=== PATIENT | female | born 1995 | race Caucasian/White ===

== ENCOUNTER 2016-12-01 16:59 | Emergency (ER) | payer BC ==
[2016-12-01 18:11] VITALS: BP 121/81
--- NOTE | 2016-12-01 19:55 | UC ---
Head Injury HPI - HPI Summary HPI Summary: WAS PLAYING [employer] TODAY AT NOON AND SUSTAINED A HIT TO HER RIGHT EYE/FOREHEAD AREA. NO LOC. AFTER THE GAME NOTICED A RICHARDS AND NECK SORENESS. HAD SOME NAUSEA AND VOMITED ONE TIME. NAUSEA HAS NOW RESOLVED. DENIES DIZZINESS OR VISUAL DISTURBANCE. HAS MILD PHOTOPHOBIA. - History Of Current Complaint Chief Complaint: UCHeadInjury Stated Complaint: POSSIBLE CONCUSSION Time Seen by Provider: 12/01/16 19:30 Hx Obtained From: Patient Hx Last Menstrual Period: 11/18/16 Onset/Duration: Sudden Onset, Lasting Hours Severity Currently: Moderate Severity Initially: Moderate Pain Intensity: 4 Pain Scale Used: 0-10 Numeric Character: Dull Aggravating Factor(s): Nothing Alleviating Factor(s): Nothing Associated Signs And Symptoms: Positive: Neck Pain, Nausea, Vomiting. Negative : LOC (Time In Secs./Mins/Hrs), LOC Duration Unknown, Confusion, Memory Loss, Seizure, Epistaxis, Dental Malocclusion - Allergies/Home Medications Allergies/Adverse Reactions: Allergies Allergy/AdvReac Type Severity Reaction Status Date / Time No Known Allergies Allergy Verified 07/06/15 16:58 PMH/Surg Hx/FS Hx/Imm Hx Respiratory History: Asthma - Surgical History Surgical History: Yes Surgery Procedure, Year, and Place: [place] tooth extraction - Family History Known Family History: Positive: None - reviewed & noncontributory Negative: Hypertension, Diabetes - Social History Alcohol Use: None Substance Use Type: None Smoking Status (MU): Never Smoked Tobacco - Immunization History Most Recent Influenza Vaccination: 2014 Most Recent Tetanus Shot: up to date Most Recent Pneumonia Vaccination: unknown Review of Systems Constitutional: Negative Eyes: Photophobia ENT: Negative Respiratory: Negative Cardiovascular: Negative Gastrointestinal: Vomiting, Nausea Neurological: Headache All Other Systems Reviewed And Are Negative: Yes Physical Exam Triage Information Reviewed: Yes Appearance: Well-Appearing, No Pain Distress, Well-Nourished Vital Signs: Initial Vital Signs Temp 98.2 F 12/01/16 18:04 Pulse 99 12/01/16 18:04 Resp 18 12/01/16 18:04 BP 121/81 12/01/16 18:04 Pulse Ox 99 12/01/16 18:04 Vital Signs Reviewed: Yes Eyes: Positive: Conjunctiva Clear ENT: Positive: Hearing grossly normal Neck: Positive: Supple, No Lymphadenopathy, Tenderness @ - MUSCLES Respiratory: Positive: No respiratory distress, No accessory muscle use Cardiovascular: Positive: Pulses Normal Abdomen Description: Positive: Soft Musculoskeletal: Positive: ROM Intact, No Edema Neurological: Positive: Alert Psychological: Positive: Age Appropriate Behavior Skin: Negative: rashes Head Injury Course/Dx - Differential Dx/Diagnosis Provider Diagnoses: CONCUSSION Discharge - Discharge Plan Condition: Stable Disposition: HOME Prescriptions: Ondansetron ODT TAB* [Zofran Odt TAB*] 4 mg PO Q6H PRN #20 tab.odt PRN Reason: Nausea/Vomiting Patient Education Materials: Concussion (ED) Forms: *Gen. Provider Communication [facility]errals: [facility] [Medical Doctor] - If Needed Additional Instructions: GO TO THE ER WITHOUT FAIL IF YOU DEVELOP UNEQUAL PUPILS, VISUAL DISTURBANCE, GAIT INSTABILITY, SPEECH DIFFICULTY, NAUSEA/VOMITING, WORSENING HEADACHE, DIZZINESS, CONFUSION, WEAKNESS OR ANY OTHER CONCERNING SYMPTOMS. [facility] CONCUSSION MANAGEMENT
[2016-12-01] MEDS ORDERED: Ondansetron ODT TAB* 4 MG PO ONE (19:59)
== END 2016-12-01 19:55 | disposition home or self-care (01) ==
LOC: UCEAST 16:59
DX: S06.0X0A Concussion without loss of consciousness, initial encounter (principal); W50.0XXA Accidental hit or strike by another person, initial encounter; Y93.63 Activity, rugby; Y92.328 Other athletic field as the place of occurrence of the external cause; R11.2 Nausea with vomiting, unspecified; M54.2 Cervicalgia; J45.909 Unspecified asthma, uncomplicated
CPT/HCPCS: 99212; A9270-GY; G0463